=== PATIENT | male | born 1970 | race Hispanic/Latino ===

== ENCOUNTER 2018-03-02 01:25 | Observation (INO) | payer OTHER, SELFPAY ==
[2018-03-02] MEDS ORDERED: Nitroglycerin 2% Ointment 1 INCH/1 GM Packet ONE (02:03)
[2018-03-02] MEDS ORDERED: Morphine 4 MG/ML VIAL ONE (02:04)
[2018-03-02 02:06] LABS: #Eosinphils 0.3 thou/uL (0.0-0.7); #Lymphocytes 3.3 thou/uL (1.20-3.40); #Monocytes 0.6 thou/uL (0.11-0.59); %Basophils 0.5 % (0.0-1.0); %Eosinophils 4.4 % (0.0-10.0); %Monocytes 8.6 % (0.0-10.0); %Neutrophils 40.6 % (42.0-75.0); Hemoglobin 14.1 g/dL (14.0-18.0); Mean Corpuscular HGB CONC 34.2 g/dL (32.0-36.0); Mean Corpuscular Volume 75.8 fL (78.0-98.0); Platelet Count 236 thou/uL (130-400); RBC Distribution Width 12.1 % (11.5-14.5); Red Blood Cell (RBC) Count 5.44 mill/uL (4.70-6.10); White Blood Cell (WBC) Count 7.3 thou/uL (4.8-10.8)
[2018-03-02 02:22] LABS: ALT (SGPT) 47 U/L (8-55); AST (SGOT) 30 U/L (5-34); Albumin 4.3 g/dL (3.5-5.0); Alkaline Phosphatase 60 U/L (40-150); Anion Gap 13 mmol/L (10-20); BUN (Urea Nitrogen) 15 mg/dL (8.9-20.6); Bilirubin, Total 0.3 mg/dL (0.2-1.2); Calc. Creatinine Clearance 0 mL/min (70-130); Calcium 10.3 mg/dL (7.8-10.44); Carbon Dioxide 26 mmol/L (22-29); Chloride 103 mmol/L (98-107); Estimated GFR-MDRD 87; Globulin 3.2 g/dL (2.4-3.5); Glucose 145 mg/dL (70-105); Lipase 27 U/L (8-78); Potassium 3.9 mmol/L (3.5-5.1); Protein, Total 7.5 g/dL (6.0-8.3); Sodium 138 mmol/L (136-145)
[2018-03-02] MEDS ORDERED: Ketorolac Tromethamine 30 MG/ML VIAL ONE ×2 (03:15→12:41)
[2018-03-02] MEDS ORDERED: Fentanyl 100 MCG/2 ML VIAL ONE ×2 (03:15→17:23)
[2018-03-02 06:24] LABS: Troponin I 0.011 ng/mL (< 0.028)
[2018-03-02 07:08] LABS: Bilirubin Negative (Negative); Blood, Urine Negative (Negative); Clarity TURBID (Clear); Glucose, Urine (Dipstick) Negative (Negative); Leukocyte Negative (Negative); Nitrite Negative (Negative); Protein, Urine (Dipstick) 30 mg/dL (Neg-Trace); Specific Gravity, Urine 1.027 (1.002-1.036); Urobilinogen 0.2 mg/dL (0.2-1.0)
[2018-03-02 07:11] LABS: Hyaline Casts/LPF 0-3 HYALINE CAST LPF (0-3 Hyaline); Pathc Cast-AUWi Flag 0.14 (0-2.49); RBC/HPF 0-3 HPF (0-3); Squamous Epithelial 0-3 HPF (0-3); WBC/HPF None Seen HPF (0-3)
[2018-03-02 07:32] LABS: Bacteria/HPF 1+ HPF (None Seen); Crystals/HPF 4+ AMORPH PHOS HPF (Negative)
[2018-03-02] MEDS ORDERED: Morphine 4 MG/ML VIAL SLOW IVP PRN (07:56)
--- NOTE | 2018-03-02 07:57 | RAD ---
CHEST 1 VIEW: Date: 03/02/18 HISTORY: Chest pain. COMPARISON: None. FINDINGS: Lungs are clear. No pneumothorax or effusion. Cardiac silhouette and mediastinal contours are within normal limits. IMPRESSION: No acute intrathoracic abnormality. POS: [facility]
[2018-03-02 07:58] VITALS: BMI 39.0
--- NOTE | 2018-03-02 08:14 | ULT ---
PRELIMINARY REPORT/[facility]/EMERGENTY AFTER-HOURS PROCEDURE US Abdomen Limited, Right Upper Quadrant EXAM DATE/TIME: 03/02/2018 2:09 AM CLINICAL HISTORY: 48 years old, male; Pain; Abdominal pain; Localized; Right upper quadrant (ruq) TECHNIQUE: Real-time ultrasound of the abdomen with image documentation. Examination was focused on the right up per quadrant. COMPARISON: No relevant prior studies available. FINDINGS: Liver: Slight increased echogenicity of the liver may indicate fatty infiltration. Probably some area s of focal fatty sparing. Gallbladder: Several shadowing gallstones within the gallbladder. Probably some biliary sludge within the gallbladder as well. No gallbladder wall thickening or pericholecystic fluid. Gallbladder appear s upper range of normal in size, with transverse diameter up to 3.8 cm. Common bile duct: No biliary dilation, common duct measures 4.3 mm. Pancreas: Visible pancreas unremarkable. Pancreas is mostly obscured by bowel gas at this time. Right kidney: Images of the right kidney show no hydronephrosis. IMPRESSION: 1. Cholelithiasis, details above. 2. No biliary tree dilation. 3. Other findings discussed above. Thank you for allowing us to participate in the care of your patient. Dictated and Authenticated by: Delgado Page MD 03/02/2018 4:42 AM Central Time ([place] & [place]) FINAL REPORT SONOGRAM RIGHT UPPER QUADRANT PERFORMED ON AN EMERGENCY BASIS: Date: 03/02/18 Time: 0210 hours HISTORY: Right upper quadrant pain. FINDINGS: Findings agree with the preliminary report by Jenny. Gallstones are confirmed. No evidence of acute bi liary obstruction. Hepatosteatosis. POS: [facility]
[2018-03-02 10:43] LABS: Troponin I 0.011 ng/mL (< 0.028)
[2018-03-02] MEDS ORDERED: Sodium Chloride 0.9% 1,000 ML IV SCH (10:45)
--- NOTE | 2018-03-02 10:55 | HP ---
HISTORY OF PRESENT ILLNESS: Trevin Nagy is a 48-year-old male patient, status post coronary artery bypass grafting last year. He presents with epigastric pain, right upper quadrant pain. Troponins were slightly elevated. He was observed. EKG evaluated by medical service hospitalist and myocardial infarction was ruled out with him having revascularized cardiac status last year. It is felt he is safe to proceed with laparoscopic cholecystectomy. Abdominal ultrasound reveals gallstones, nondilated bile duct. Liver function tests are normal. ALLERGIES: NONE. TOBACCO: None. ALCOHOL: None. MEDICATIONS: None. REVIEW OF SYSTEMS: Ten-point noncontributory. PHYSICAL EXAMINATION: VITAL SIGNS: Height 5 feet 6 inches, weight 241 pounds, 39 BMI, temperature 98.1, pulse 71, blood pressure 118/76. HEAD, EARS, EYES, NOSE AND THROAT: Unremarkable. LUNGS: Clear to auscultation. CARDIAC: Regular rhythm without murmur or gallop. ABDOMEN: Soft and nontender. EXTREMITIES: Unremarkable. LABORATORY DATA: White count count 7, hemoglobin 14. Liver function tests normal. Basic metabolic profile normal. Glucose 145. ASSESSMENT AND PLAN: Cholecystitis, cholelithiasis. Recommend laparoscopic video cholecystectomy. Risks of infection, bleeding, visceral and biliary injury explained, and he consents. We will proceed today. Job ID: [id number]
[2018-03-02] MEDS ORDERED: Bupivacaine HCl 0.5%/Epinephrine 1:200,000/PF 30 ml Vial ONE (17:07)
[2018-03-02] MEDS ORDERED: Midazolam HCl 2 mg/2 ml Vial ONE (17:23)
[2018-03-02] MEDS ORDERED: Promethazine HCl 25 MG/ML VIAL SLOW IVP PRN (18:20)
[2018-03-02] MEDS ORDERED: Promethazine HCl 25 MG/ML VIAL IM PRN (18:20)
[2018-03-02] MEDS ORDERED: Ondansetron HCl/PF 4 MG/2 ML Vial IVP PRN (18:20)
[2018-03-02] MEDS ORDERED: SUGAMMADEX SODIUM 200 MG/2 ML VIAL ONE (18:38)
[2018-03-02] MEDS ORDERED: traMADol HCl 50 MG TAB PO PRN ×2 (18:40)
[2018-03-02] MEDS ORDERED: Ibuprofen 600 MG TAB PO PRN (18:40)
[2018-03-02] MEDS ORDERED: Acetaminophen 500 MG TAB PO PRN (18:40)
[2018-03-02] MEDS ORDERED: Albuterol Sulfate HFA (OR ONLY) ONE (18:44)
[2018-03-02] MEDS ORDERED: Glycopyrrolate 0.2 MG/ML 5 ML SYRINGE ONE (20:41)
[2018-03-02] MEDS ORDERED: Lidocaine 1% PF 5 ML VIAL ONE (20:41)
[2018-03-02] MEDS ORDERED: Rocuronium Bromide 10 MG/ML (10ML VIAL) ONE (20:41)
[2018-03-02] MEDS ORDERED: Ondansetron PF 4 MG/2 ML Vial ONE (20:41)
[2018-03-02] MEDS ORDERED: Esmolol 100 MG/10 ML VIAL ONE (20:41)
[2018-03-02] MEDS ORDERED: PROVENTIL INHALER 6.7 G (200 INHALATIONS) ONE (20:41)
[2018-03-02] MEDS ORDERED: PROPOFOL 200 MG/20 ML VIAL ONE (20:41)
[2018-03-02] MEDS ORDERED: Rosuvastatin 20 MG TAB PO SCH (21:00)
[2018-03-02] MEDS ORDERED: Carvedilol 6.25 MG TAB PO SCH (21:00)
[2018-03-02 21:34] VITALS: BP 141/84
[2018-03-02 22:55] VITALS: TEMP 97
--- NOTE | 2018-03-02 23:02 | HP ---
PRIMARY CARE PHYSICIAN: None. CHIEF COMPLAINT: Mid epigastric pain. HISTORY OF PRESENT ILLNESS: This is a 48-year-old male with a known history of gallstones and also a history of CABG done last year. He reports that about 6 to 10 years ago he did have an episode of pain from gallstones and that he was evaluated in the hospital and they determined that he did not need surgery at that time. He has not had any symptoms since then until recently, especially over the last couple of days he has had multiple episodes, most severe last night, so he came into the emergency room. His pain was 10/10 across the front of his stomach and also radiating to his back. He was seen in the emergency room, had normal EKG, negative cardiac markers, was given fentanyl, Toradol, and morphine with eventual resolution of his pain. The patient had an abdominal ultrasound done, which did show gallstones. He did have a positive Conner sign in the emergency room observation in the hospital. Dr. Neal has been consulted, and he plans to do a laparoscopic cholecystectomy today and likely discharge after that. The patient denies any other symptoms besides the abdominal pain. No nausea or vomiting. No diarrhea or constipation. No fever. No other symptoms. PAST MEDICAL HISTORY: 1. Coronary artery disease. 2. Hypertension. 3. Hyperlipidemia. 4. Cholelithiasis. PAST SURGICAL HISTORY: Coronary artery bypass grafting last year. ALLERGIES: NO KNOWN DRUG ALLERGIES. CURRENT MEDICATIONS: 1. Rosuvastatin 20 mg at night. 2. Lisinopril/hydrochlorothiazide 20/12.5 mg one tablet daily. 3. Carvedilol 12.5 mg twice a day. SOCIAL HISTORY: The patient denies any tobacco or alcohol use. FAMILY HISTORY: Dad had lung cancer, COPD, and he had acute UT two times in his 70s. REVIEW OF SYSTEMS: CONSTITUTIONAL: No fevers. No chills. No weight changes. HEENT: Eyes, no double vision or blurred vision. ENT; no congestion, drainage, or sore throat. PULMONARY: No coughing, wheezing, or shortness of breath. CARDIOVASCULAR: No chest pain. No palpitations, or racing heart. GASTROINTESTINAL: See HPI. GENITOURINARY: He does have some hesitant urinary stream that has been going on for some time, otherwise no dysuria or hematuria. MUSCULOSKELETAL: No muscle aches or joint pain. SKIN: No rashes or lesions noted. NEUROLOGIC: No numbness, tingling, or focal weakness. PHYSICAL EXAMINATION: VITAL SIGNS: Blood pressure 118/76, pulse 71, respirations 17, O2 saturation 97% on room air, temperature 98.1. GENERAL: This is a well-developed obese male, in no acute distress. HEENT: Pupils are equal, round, and reactive to light. Oropharynx clear without lesions, erythema, or exudate. NECK: Supple. No lymphadenopathy. No thyroid nodules or enlargement. No JVD. HEART: Regular rate and rhythm. No murmurs, rubs, or gallops. LUNGS: Clear to auscultation bilaterally. No wheezes, crackles, or rhonchi. ABDOMEN: Soft, minimal tenderness to palpation in the right upper quadrant and mid epigastric region. No rebound tenderness currently. No masses. Positive bowel sounds. EXTREMITIES: No clubbing, cyanosis, or edema. SKIN: No rashes or lesions noted. NEUROLOGIC: He has intact strength in all extremities. No facial droop. PSYCHIATRIC: Alert and oriented x3. Normal mood and affect. LABORATORY DATA: Complete metabolic panel, within normal limits. Troponin is negative x3. CBC normal. Urinalysis is negative for infection. IMAGING: I did review the chest x-ray done in the emergency room along with the radiologist's report, it shows no acute intrathoracic abnormality. Abdominal ultrasound from the emergency room is reviewed as well, it shows cholelithiasis along with biliary sludge in the gallbladder, no gallbladder thickening or pericholecystic fluid. No biliary tree dilatation. Does have some likely fatty infiltration of his liver. ASSESSMENT: 1. Abdominal pain, likely symptomatic cholelithiasis. Plan for a laparoscopic cholecystectomy today and then likely discharge home after that. 2. Hypertension and hyperlipidemia. The patient will resume his home medications. 3. Coronary artery disease. No evidence of acute coronary syndrome at this time. Job ID: [id number]
--- NOTE | 2018-03-03 01:08 | OP ---
DATE OF PROCEDURE: 03/02/2018 PREOPERATIVE DIAGNOSES: Cholecystitis and cholelithiasis, acute on chronic. POSTOPERATIVE DIAGNOSES: Cholecystitis and cholelithiasis, acute on chronic. PROCEDURE PERFORMED: Laparoscopic video cholecystectomy. ANESTHESIA: General, local with 0.5% Marcaine with epinephrine 30 mL. DESCRIPTION OF PROCEDURE: The patient was taken to the operating room, where under general anesthesia, abdomen was prepared with ChloraPrep and draped in routine fashion. Local anesthetic with 0.5% Marcaine with epinephrine was infiltrated in the skin and subcutaneous tissue at each port site. An umbilical incision was made. Pneumoperitoneum to 15 mmHg was obtained with a Veress needle, replaced with a 5 port, and laparoscope inserted. A right subxiphoid incision was made and 11 port placed. Right subcostal incision was made, midclavicular, anterior axillary line, and 5 port was placed. Liver appeared to be normal. Gallbladder was acutely inflamed. Fundus was grasped at the cephalad. The infundibulum was grasped and reflected laterally. Cystic artery and duct dissected free. Critical view obtained. Cystic artery and duct double clipped proximally and divided. Gallbladder was dissected free from liver bed, obtaining good hemostasis prior to division of the final peritoneal attachments. Gallbladder and large stones were removed and submitted to Pathology. Good hemostasis ensured with cautery. Irrigant and pneumoperitoneum evacuated. All instruments were removed, and all skin incisions were approximated with interrupted subdermal 4-0 Monocryl and [place] glue applied. Job ID: [id number]
[2018-03-03] MEDS ORDERED: Lisinopril/Hydrochlorothiazide 20 mg/12.5 mg Tablet PO SCH (09:00)
--- NOTE | 2018-03-04 16:58 | EKG ---
Test Reason : Blood Pressure : / mmHG Vent. Rate : 072 BPM Atrial Rate : 072 BPM P-R Int : 176 ms QRS Dur : 094 ms QT Int : 376 ms P-R-T Axes : 044 072 057 degrees QTc Int : 411 ms Sinus rhythm with occasional Premature ventricular complexes Anteroseptal infarct , age undetermined Abnormal ECG Confirmed by ANIRUDH CHOWDARY ([id number]), science editor CAYETANO DE LA VEGA ([id number]) on 03/04/2018 4:58:09 PM Referred By: Confirmed By:ANIRUDH CHOWDARY
--- NOTE | 2018-03-04 17:01 | EKG ---
Test Reason : Blood Pressure : / mmHG Vent. Rate : 063 BPM Atrial Rate : 063 BPM P-R Int : 168 ms QRS Dur : 098 ms QT Int : 416 ms P-R-T Axes : 045 070 070 degrees QTc Int : 425 ms Normal sinus rhythm Anteroseptal infarct , age undetermined Abnormal ECG No changes Confirmed by ANIRUDH CHOWDARY ([id number]), assistant editor CAYETANO DE LA VEGA ([id number]) on 03/04/2018 5:01:03 PM Referred By: Confirmed By:ANIRUDH CHOWDARY
== END 2018-03-02 23:46 | disposition home or self-care (01) ==
LOC: ERS 01:25 → ERHOLD 06:26 → 2SE 07:52
PROVIDERS: ADMIT Internal Medicine; ATTEND Internal Medicine
PROC: 0FT44ZZ Resection of Gallbladder, Percutaneous Endoscopic Approach (ICD-10-PCS; principal; 2018-03-02)
DX: K80.12 Calculus of gallbladder with acute and chronic cholecystitis without obstruction (principal); I10 Essential (primary) hypertension; I25.10 Atherosclerotic heart disease of native coronary artery without angina pectoris; E78.5 Hyperlipidemia, unspecified; Z95.1 Presence of aortocoronary bypass graft; Z79.899 Other long term (current) drug therapy
CPT/HCPCS: 36415; 71045; 76705; 80053; 81003; 81015; 83690; 84484; 85025; 88304; 90471; 90686; 90732; 93005; 96365; 96374; 96375; G0008; G0009; G0378; J0131; J0670; J1885; J1956; J2001; J2250; J2270; J2405; J2704; J3010; J3490

== ENCOUNTER 2018-03-26 17:59 | Emergency (ER) | payer OTHER ==
[2018-03-26] MEDS ORDERED: Ketorolac Tromethamine 30 MG/ML VIAL ONE ×2 (19:30→20:00)
--- NOTE | 2018-03-26 19:39 | RAD ---
RIGHT FOOT THREE VIEWS: 03/26/2018 HISTORY: Right foot pain for two weeks. History of gout. COMPARISON: None available. FINDINGS: There is subcutaneous soft tissue swelling seen medial to the metatarsophalangeal joint of the great toe. There is a questionable very tiny erosion seen involving the medial aspect of the metatarsal he ad. These findings could potentially be related to the patient's history of gout. There is no fract ure, dislocation, or other osseous abnormality seen. A very tiny plantar calcaneal enthesophyte is n oted. IMPRESSION: 1. No acute osseous abnormality. 2. Subcutaneous soft tissue swelling involving the great toe and just medial to the first metatarsop halangeal joint. These findings could be related to the patient's history of gout, but clinical kika elation is recommended. 3. Mild irregularity of the second metatarsal head, which may be related to prior injury. POS: [facility]
== END 2018-03-26 20:22 | disposition home or self-care (01) ==
LOC: ERS 17:59
DX: M10.9 Gout, unspecified (principal); I10 Essential (primary) hypertension; E78.5 Hyperlipidemia, unspecified; Z87.891 Personal history of nicotine dependence; Z79.899 Other long term (current) drug therapy
CPT/HCPCS: 96372; J1885